=== PATIENT | female | born 1975 | race African-American/Black ===

== ENCOUNTER 2017-01-16 02:14 | Emergency (ER) | payer OTHER ==
[~2017-01-16] VITALS: Ht 170.2 cm; Wt 95.5 kg
[~2017-01-16 02:14] MED LIST: IBUP-1542 PO; TRAM50TA2 PO
[2017-01-16 02:18] VITALS: Ht 170.2 cm; Wt 95.5 kg
[2017-01-16] MEDS ORDERED: CEPH-443 PO (03:07)
[2017-01-16] MEDS ORDERED: SULF1TAB31 PO (03:07)
[2017-01-16] MEDS ORDERED: IBUP-1542 PO (03:07)
[2017-01-16] MEDS ORDERED: IBUPROFEN 600 MG TAB PO ONE (03:30)
--- NOTE | 2017-01-16 03:34 | ERD ---
ER Documentation Chief Complaint Date/Time DATE: 01/16/17 TIME: 03:30 Chief Complaint possible insect bite right upper posterior thigh x2 days HPI 41-year-old female presents to emergency department for complaints of insect bite on the right upper thigh for 2 days. Patient describes the pain as throbbing pain, 6/10 scale, is complaining of redness around the area. Patient denies any purulent discharge. Patient denies any numbness or tingling. Patient denies any fever or chills. Patient did not take any medications to help with symptoms. ROS All systems reviewed and are negative except as per history of present illness. Medications Home Meds Active Scripts Ibuprofen* (Motrin*) 600 Mg Tab, 600 MG PO Q6H Y for PAIN AND OR ELEVATED TEMP, #30 TAB Prov:RAHEL CAMPOS WRAP TURNER 01/16/17 Cephalexin* (Keflex*) 500 Mg Capsule, 500 MG PO QID for 10 Days, CAP Prov:RAHEL CAMPOS NP 01/16/17 Sulfamethoxazole/Trimethoprim* (Bactrim Ds* Tablet) 1 Each Tablet, 1 TAB PO BID , #20 TAB Prov:RAHEL CAMPOS NP 01/16/17 Ibuprofen* (Motrin*) 600 Mg Tab, 600 MG PO Q6H Y for PAIN AND OR ELEVATED TEMP, #30 Prov:ADELAIDA WYATT DO 07/03/15 Tramadol HCl (Tramadol HCl) 50 Mg Tab, 50 MG PO Q6 Y for PAIN, #20 TAB Prov:ADELAIDA WYATT DO 07/03/15 Allergies Allergies: Coded Allergies: No Known Allergy (Unverified , 07/03/15) PMhx/Soc History of Surgery: Yes () Anesthesia Reaction: No Hx Neurological Disorder: No Hx Respiratory Disorders: No Hx Cardiac Disorders: No Hx Psychiatric Problems: No Hx Miscellaneous Medical Probl: No Hx Alcohol Use: Yes (Social) Hx Substance Use: No Hx Tobacco Use: Yes Smoking Status: Never smoker FmHx Family History: No coronary disease, No diabetes, No other Physical Exam Vitals Vital Signs Date Time Temp Pulse Resp B/P Pulse Ox O2 Delivery O2 Flow Rate FiO2 01/16/17 02:18 97.4 73 20 122/67 100 Physical Exam GENERAL: The patient is well developed and appropriate for usual state of health, in no apparent distress. CHEST: Clear to auscultation bilaterally. There are no rales, wheezes or rhonchi. HEART: Regular rate and rhythm. No murmurs, clicks, rubs or gallops. No S3 or S4. ABDOMEN: Soft, nontender and nondistended. Good bowel sounds. No rebound or guarding. No gross peritonitis. No gross organomegaly or masses. No Boles sign or McBurney point tenderness. BACK: No midline or flank tenderness. EXTREMITIES: Equal pulses bilaterally. There is no peripheral clubbing, cyanosis or edema. No focal swelling or erythema. Full range of motion. Grossly neurovascularly intact. NEURO: Alert and oriented. Cranial nerves 2-12 intact. Motor strength in all 4 extremities with 5/5 strength. Sensation grossly intact. Normal speech and gait. SKIN: Noted 0.5 centimeters erythematous indurated area on the right eye, no fluctuance noted, mild tenderness on palpation. There is no apparent rash or petechia. The skin is warm and dry. HEMATOLOGIC AND LYMPHATIC: There is no evidence of excessive bruising or lymphedema. No gross cervical, axillary, or inguinal lymphadenopathy. Results 24 hrs Current Medications Medications (Trade) Dose Ordered Sig/Tarun Route PRN Reason Start Time Stop Time Status Last Admin Dose Admin Ibuprofen (Motrin) 600 mg ONCE ONCE PO 01/16/17 03:30 01/16/17 03:30 DC 01/16/17 03:19 Patient was given medication for pain here in emergency department, after treatment, patient verbalized feeling much better. Patient's pain is improved. Procedures/MDM Medical decision making: Patient's symptoms are not consistent with infected insect bite. No symptoms of any abscess. No symptoms of any neurovascular compromise. Prescription was given for ibuprofen, Keflex, Bactrim, was advised apply warm compresses on affected area, patient is advised to return to emergency department for any worsening symptoms. Follow with primary care doctor in 2-3 days for reevaluation of symptoms. Return to emergency department for any worsening symptoms. Departure Diagnosis: Primary Impression: Infected insect bite Condition: Stable Patient Instructions: Insect Sting/Bite, Infected RAHEL CAMPOS NP January 16, 2017 03:34
== END 2017-01-16 03:29 | disposition home or self-care (01) ==
LOC: FTE 02:14
DX: S70.361A Insect bite (nonvenomous), right thigh, initial encounter (principal); W57.XXXA Bitten or stung by nonvenomous insect and other nonvenomous arthropods, initial encounter; Y92.9 Unspecified place or not applicable; Z87.891 Personal history of nicotine dependence
CPT/HCPCS: Z7502; Z7610; 99284